=== PATIENT | female | born 1995 | race Caucasian/White ===

== ENCOUNTER 2018-01-18 19:08 | Emergency (ER) | payer OTHER ==
--- NOTE | 2018-01-18 19:36 | ER Document Report ---
ED Medical Screen (RME) - General Chief Complaint: Vag Bleeding, +preg <12wks Stated Complaint: VAGINAL BLEEDING Time Seen by Provider: 01/18/18 19:30 TRAVEL OUTSIDE OF THE [place] IN LAST 30 DAYS: No - HPI Notes: 01/18/18 19:35 6 weeks by day coming in for heavy vaginal bleeding - Related Data Allergies/Adverse Reactions: No Known Allergies Allergy (Unverified 11/01/15 10:13) Past Medical History - Past Medical History Cardiac Medical History: Denies: Hx Heart Attack, Hx Hypertension Pulmonary Medical History: Denies: Hx Asthma Neurological Medical History: Denies: Hx Cerebrovascular Accident, Hx Seizures Renal/ Medical History: Denies: Hx Peritoneal Dialysis GI Medical History: Denies: Hx Hepatitis, Hx Hiatal Hernia, Hx Ulcer Infectious Medical History: Denies: Hx Hepatitis Past Surgical History: Denies: Hx Hysterectomy, Hx Mastectomy, Hx Open Heart Surgery, Hx Pacemaker Review of Systems - Review of Systems Constitutional: Other - Vaginal bleeding Physical Exam - Vital signs Vitals: Temp Pulse Resp BP Pulse Ox 98.9 F 83 18 110/72 99 01/18/18 19:14 01/18/18 19:14 01/18/18 19:14 01/18/18 19:14 01/18/18 19:14 - Respiratory Respiratory status: No respiratory distress Chest status: Nontender Breath sounds: Normal Chest palpation: Normal Course - Vital Signs Vital signs: Temp Pulse Resp BP Pulse Ox 98.9 F 83 18 110/72 99 01/18/18 19:14 01/18/18 19:14 01/18/18 19:14 01/18/18 19:14 01/18/18 19:14
[2018-01-18 20:07] LABS: ABSOLUTE EOSINOPHILS # (AUTO) 0.4 10^3/uL (0.0-0.6); ABSOLUTE LYMPHOCYTES (AUTO) 2.2 10^3/uL (0.5-4.7); ABSOLUTE MONOCYTES (AUTO) 0.6 10^3/uL (0.1-1.4); ABSOLUTE NEUT (AUTO) 5.5 10^3/uL (1.7-8.2); BASOPHILS % (AUTO) 0.5 % (0-2); EOSINOPHILS % (AUTO) 4.2 % (0-6); HEMATOCRIT 38.3 % (36.0-47.0); HEMOGLOBIN 13.6 g/dL (12.0-15.5); LYMPHOCYTES % (AUTO) 25.3 % (13-45); MEAN CORPUSCULAR HEMOGLOBIN 32.2 pg (27.0-33.4); MEAN CORPUSCULAR HGB CONC 35.5 g/dL (32.0-36.0); MEAN CORPUSCULAR VOLUME 91 fl (80-97); MONOCYTES % (AUTO) 6.7 % (3-13); PLATELET COUNT 232 10^3/uL (150-450); RED BLOOD COUNT 4.22 10^6/uL (3.72-5.28); RED CELL DISTRIBUTION WIDTH 12.4 % (11.5-14.0); SEGMENTED NEUTROPHILS % (AUTO) 63.3 % (42-78); TOTAL CELLS COUNTED % (AUTO) 100 %; WHITE BLOOD COUNT 8.8 10^3/uL (4.0-10.5)
--- NOTE | 2018-01-18 21:40 | RADIOLOGY REPORT (SQ) ---
EXAM DESCRIPTION: U/S OB TRANSVAG W/DOPPLER COMPLETED DATE/TIME: 01/18/2018 9:23 pm REASON FOR STUDY: +preg vag bleed COMPARISON: None. TECHNIQUE: Transvaginal static and realtime grayscale images acquired of the pelvis. Additional charissa cted spectral and color Doppler images recorded. All images stored on PACs. BHC.[id number]. LIMITATIONS: None. FINDINGS: UTERUS: The uterus measures 7.3 x 3.1 x 4.6 cm. The endometrium measures 5 mm in double w all thickness. The cervix measures 3.1 cm in length. Nabothian cyst noted at the cervix. No visual ized intrauterine . RIGHT ADNEXA: The right ovary measures 3.3 x 2.1 x 2.1 cm. Flow by Doppler was shown to the right ov ada. No adnexal free fluid. No adnexal masses. LEFT ADNEXA: The left ovary measures 2.9 x 1.9 x 1.7 cm. Flow by Doppler was shown to the left ovary . . No adnexal free fluid. No adnexal masses. FREE FLUID: None. IMPRESSION: NO VISUALIZED INTRA- OR EXTRAUTERINE . ECTOPIC CANNOT BE EXCLUDED. FOLLOW-UP ULTRASOUND AND SERIAL [facility] LEVELS STRONGLY RECOMMENDED TO ACCURATELY ASSESS STATU S. TECHNICAL DOCUMENTATION: JOB ID: [id number] [employer]- All Rights Reserved Reading location - IP/workstation name: [email or web address]
--- NOTE | 2018-01-18 23:49 | ER Document Report ---
ED General - General Chief Complaint: Vag Bleeding, +preg <12wks Stated Complaint: VAGINAL BLEEDING Time Seen by Provider: 01/18/18 19:30 Notes: Patient is a 22-year-old female without past medical history presents with concerns of bleeding during . She had a positive home test 2 weeks ago, followed up with her general physician and had a positive test in clinic. She states that she began having heavy vaginal bleeding tonight similar to her usual menstrual cycle. This prompted her to come to the emergency department for further assessment. She denies any history of bleeding previously since having a positive test. She has never been in the past. She also notes a mild, constant, lower abdominal cramping. Nothing improves or worsens her symptoms. She denies any fever or constitutional symptoms. TRAVEL OUTSIDE OF THE [place] IN LAST 30 DAYS: No - Related Data Allergies/Adverse Reactions: No Known Allergies Allergy (Unverified 11/01/15 10:13) Past Medical History - General Information source: Patient - Social History Smoking Status: Never Smoker Frequency of alcohol use: None Drug Abuse: None Family History: Reviewed & Not Pertinent Patient has suicidal ideation: No Patient has homicidal ideation: No - Past Medical History Cardiac Medical History: Denies: Hx Heart Attack, Hx Hypertension Pulmonary Medical History: Denies: Hx Asthma Neurological Medical History: Denies: Hx Cerebrovascular Accident, Hx Seizures Renal/ Medical History: Denies: Hx Peritoneal Dialysis GI Medical History: Denies: Hx Hepatitis, Hx Hiatal Hernia, Hx Ulcer Infectious Medical History: Denies: Hx Hepatitis Past Surgical History: Denies: Hx Hysterectomy, Hx Mastectomy, Hx Open Heart Surgery, Hx Pacemaker Review of Systems - Review of Systems Notes: Constitutional: Negative for fever. HENT: Negative for sore throat. Eyes: Negative for visual changes. Cardiovascular: Negative for chest pain. Respiratory: Negative for shortness of breath. Gastrointestinal: Positive for lower abdominal pain Genitourinary: Positive for vaginal bleeding Musculoskeletal: Negative for back pain. Skin: Negative for rash. Neurological: Negative for headaches, weakness or numbness. 10 point ROS negative except as marked above and in HPI. Physical Exam - Vital signs Vitals: Temp Pulse Resp BP Pulse Ox 98.9 F 83 18 110/72 99 01/18/18 19:14 01/18/18 19:14 01/18/18 19:14 01/18/18 19:14 01/18/18 19:14 Interpretation: Normal Notes: PHYSICAL EXAMINATION: GENERAL: Well-appearing, well-nourished and in no acute distress. HEAD: Atraumatic, normocephalic. EYES: Pupils equal round and reactive to light, extraocular movements intact, sclera anicteric, conjunctiva are normal. ENT: nares patent, oropharynx clear without exudates. Moist mucous membranes. NECK: Normal range of motion, supple without lymphadenopathy LUNGS: Breath sounds clear to auscultation bilaterally and equal. No wheezes rales or rhonchi. HEART: Regular rate and rhythm without murmurs ABDOMEN: Soft, nontender, normoactive bowel sounds. No guarding, no rebound. No masses appreciated. EXTREMITIES: Normal range of motion, no pitting or edema. No cyanosis. NEUROLOGICAL: No focal neurological deficits. Moves all extremities spontaneously and on command. PSYCH: Normal mood, normal affect. SKIN: Warm, Dry, normal turgor, no rashes or lesions noted. Course - Re-evaluation Re-evalutation: 01/19/18 03:48 Patient presents with concerns of vaginal bleeding during a however she is not . Quantitative hCG is negative and transvaginal ultrasound is unremarkable. Abdominal exam is benign. Vitals within normal limits. Suspect the patient is simply having a menstrual cycle. I reviewed with the patient her lab results as well as her ultrasound findings. At this time will discharge with return precautions and follow-up recommendations. Verbal discharge instructions given a the bedside and opportunity for questions given. Medication warnings reviewed. Patient is in agreement with this plan and has verbalized understanding of return precautions and the need for primary care follow-up in the next 24-72 hours. - Vital Signs Vital signs: Temp Pulse Resp BP Pulse Ox 97.9 F 56 L 16 105/67 100 01/18/18 23:52 01/18/18 23:52 01/18/18 23:52 01/18/18 23:52 01/18/18 23:52 - Laboratory Result Diagrams: 01/18/18 19:54 Discharge - Discharge Clinical Impression: Vaginal bleeding, Abdominal cramping Condition: Good Disposition: HOME, SELF-CARE Additional Instructions: You are not . You are having a menstrual cycle. Return for any additional concerns or symptoms you may have.
[2018-01-18 23:53] VITALS: BP 105/67
== END 2018-01-19 00:18 | disposition home or self-care (01) ==
LOC: ER 19:08
DX: N93.9 Abnormal uterine and vaginal bleeding, unspecified (principal); R10.30 Lower abdominal pain, unspecified
CPT/HCPCS: 99284; 96372; 86900; 86901; 36415; 86850; 84702; 85025; 76817; 93976; J2790